=== PATIENT | male | born 2000 | race Caucasian/White ===

== ENCOUNTER 2022-01-17 14:01 | Emergency (ER) | payer OTHER ==
[2022-01-17 14:25] VITALS: BP 124/78
--- NOTE | 2022-01-17 14:26 | ED Physician Documentation ---
History of Present Illness - Stated complaint Stated Complaint: HEAD LAC/INJ - Chief complaint Chief Complaint: Laceration - Additonal information Additional information: 21-year-old male presents emergency department for evaluation of a left sided scalp laceration. 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 When he was removing chio material he came up on a hornets nest which was disturbed. In an effort to avoid the hornets nest he ended up cutting his head on a corner of the roof. He did not fall off the roof. Did not lose consciousness. He was stung 1 time in the left arm by a hornet. He does endorse a mild headache. No nausea or vomiting. He is not anticoagulated. Review of Systems Constitutional: reports: Reviewed and negative Eyes: reports: Reviewed and negative Ears: reports: Reviewed and negative Respiratory: reports: Reviewed and negative GI: reports: Reviewed and negative : reports: Reviewed and negative Skin: reports: Laceration (s) Musculoskeletal: reports: Reviewed and negative Neurologic: reports: Reviewed and negative PD PAST MEDICAL HISTORY - Allergies Allergies/Adverse Reactions: Allergies Allergy/AdvReac Type Severity Reaction Status Date / Time No Known Drug Allergies Allergy Verified 01/17/22 14:14 PD ED PE NORMAL - General General: Alert and oriented X 3, No acute distress, Well developed/nourished - HEENT HEENT: Ears normal, Moist mucous membranes, Pharynx benign, Other (Negative for raccoon eyes, parker sign. No hemotympanums) - Neck Neck: Supple, no meningeal sign, C-Spine cleared by NEXUS criteria - Cardiac Cardiac: RRR, No murmur - Respiratory Respiratory: No respiratory distress, Clear bilaterally - Abdomen Abdomen: Normal bowel sounds, Soft - Derm Derm: Normal color, Warm and dry, Other (3 cm left sided scalp laceration. Linear.) - Extremities Extremities: No deformity, No tenderness to palpate, Normal ROM s pain, No edema - Neuro Neuro: Alert and oriented X 3, general medical practitioner 2-12 intact Eye Opening: Spontaneous Motor: Obeys Commands Verbal: Oriented GCS Score: 15 - Psych Psych: Normal mood Results - Vitals Vitals: Vital Signs - 24 hr 01/17/22 14:09 Temperature 36.4 C L Heart Rate 60 Respiratory 14 Rate Blood Pressure 124/78 O2 Saturation 99 Oxygen O2 Source Room air Procedures - Laceration (location) left parietal scalp Length in cm: 4 Wound type: Linear, Clean Wound preparation: Irrigated copiously NS Skin layer closure: [place] Other: Patient tolerated well, No complications, Neurovascular intact, Tetanus UTD PD MEDICAL DECISION MAKING - ED course Complexity details: considered differential, d/w patient ED course: 19-year-old male presents emergency department for evaluation of Left parietal scalp laceration sustained when working on a roof and hitting a hornets nest. And attempted to flee the nest he struck his head on a corner of the roof. Did not fall off the roof. 4 cm laceration was closed with 6 shauna. His tetanus is up-to-date within the last year. Clinically no signs of basilar skull fracture. No loss of consciousness or anticoagulation. Deferred CT imaging. Routine wound care and emergent return precautions discussed. [employer] paperwork [place] [id number] completed Departure - Departure Disposition: 01 Home, Self Care Clinical Impression: Work related injury Scalp laceration Qualifiers: Encounter type: initial encounter Qualified Code(s): S01.01XA - Laceration without foreign body of scalp, initial encounter Condition: Stable Record reviewed to determine appropriate education?: Yes Comments: Your shauna(s) should be removed in 7 to 10 days. In 24 hours you may remove the dressing wash gently with warm soap and water, apply any antibiotic ointment. Your tetanus is up-to-date. Please attempt to keep your wound clean and dry. Do not submerge it in dirty dishwater or bath water. Return to the emergency department if you have any concerns of infection such as redness, fevers milky drainage increased pain. Return sooner to the ED for any sudden severe headache, uncontrolled vomiting slurred speech, droopy face arm or leg weakness
== END 2022-01-17 15:46 | disposition home or self-care (01) ==
LOC: ED 14:01
DX: S01.01XA Laceration without foreign body of scalp, initial encounter (principal); W26.9XXA Contact with unspecified sharp object(s), initial encounter; Y99.0 Civilian activity done for income or pay
CPT/HCPCS: 12002; 99281